=== PATIENT | female | born 1965 | race Two or more races ===

== ENCOUNTER 2021-07-06 10:32 | Emergency (ER) | payer SELFPAY ==
[~2021-07-06] VITALS: Ht 162.6 cm; Wt 83.5 kg
[2021-07-06 11:10] VITALS: BP 181/94
[2021-07-06] MEDS ORDERED: IBUP800T27 PO (12:03)
== END 2021-07-06 12:20 | disposition home or self-care (01) ==
LOC: ER 10:32
DX: S86.912A Strain of unspecified muscle(s) and tendon(s) at lower leg level, left leg, initial encounter (principal); X58.XXXA Exposure to other specified factors, initial encounter; Y93.89 Activity, other specified; Y92.89 Other specified places as the place of occurrence of the external cause; Y99.8 Other external cause status
CPT/HCPCS: 93971